=== PATIENT | female | born 2000 | race Caucasian/White ===

== ENCOUNTER → 2018-01-01 13:12 | Outpatient (CLI) | payer BC, SELFPAY ==
[2018-01-01 15:50] LABS: Hematocrit 42.7 % (37-47); Hemoglobin 13.9 g/dl (12.0-15.0); Mean Corp Hgb Conc 32.6 g/gl (32-36); Mean Corpuscular Hgb 27.6 pg (27.0-32.0); Mean Corpuscular Volume 84.7 fL (81-99); Mean Platelet Vol. 11.3 fl (6.2-12.0); Platelet Count 278 K/mm3 (150-450); RBC Distribution Width CV 13.8 % (11.6-14.6); RBC Distribution Width SD 41.9 fl (35.1-43.9); Red Blood Count 5.04 M/mm3 (4.2-5.4); White Blood Count 8.9 K/mm3 (4.4-11.0)
[2018-01-01 15:52] LABS: Scan Indicated on CBC? Y/N NO
[2018-01-01 16:18] LABS: hCG Titer Quant., Serum < 1 mIU/mL (<9 non-preg)
[2018-01-01 17:05] LABS: Estradiol 43.4 pg/mL; Free T3 3.1 pg/mL (2.18-3.98); T4 Free Direct 1.06 ng/dL (0.76-1.46); Thyroid Stim Hormone (TSH) 1.65 uIU/mL (0.358-3.74)
[2018-01-02 08:43] LABS: Progesterone Level 0.57 ng/mL (See Comment)
== END ==
PROVIDERS: Visit Provider Obstetrics & Gynecology
DX: R10.2 Pelvic and perineal pain (principal)
CPT/HCPCS: 36415; 82670; 83036; 84144; 84403; 84439; 84443; 84481; 84702; 85027

== ENCOUNTER 2018-02-22 06:10 | Day surgery (SDC) | payer BC, SELFPAY ==
--- NOTE | 2018-02-15 11:49 | EKG12_ITS ---
Test Reason : PREOP Blood Pressure : / mmHG Vent. Rate : 060 BPM Atrial Rate : 060 BPM P-R Int : 150 ms QRS Dur : 108 ms QT Int : 402 ms P-R-T Axes : 000 175 165 degrees QTc Int : 402 ms Suspect arm lead reversal, interpretation assumes no reversal Normal sinus rhythm with sinus arrhythmia Right axis deviation ST & T wave abnormality, consider inferior ischemia Abnormal ECG Lead reversal-noted Reconfirmed by [place] SEWELL, ANDRES ([id number]), multimedia editor BRANNON WHITE ([id number]) on 02/18/2018 2:02:24 PM Referred By: Phyllis Reardon Confirmed By:ANDRES HO MD
[2018-02-15 12:04] LABS: Prothrombin Time (Protime)PT. 13.5 SECONDS (11.7-14.9)
[2018-02-15 12:05] LABS: Hematocrit 42.6 % (37-47); Hemoglobin 13.4 g/dl (12.0-15.0); Mean Corp Hgb Conc 31.5 g/gl (32-36); Mean Corpuscular Hgb 26.9 pg (27.0-32.0); Mean Corpuscular Volume 85.5 fL (81-99); Mean Platelet Vol. 10.7 fl (6.2-12.0); Partial Thromboplast Time 29.7 Seconds (24.1-36.2); Platelet Count 247 K/mm3 (150-450); RBC Distribution Width CV 13.6 % (11.6-14.6); RBC Distribution Width SD 42.6 fl (35.1-43.9); Red Blood Count 4.98 M/mm3 (4.2-5.4); White Blood Count 7.8 K/mm3 (4.4-11.0)
[2018-02-15 12:34] LABS: Scan Indicated on CBC? Y/N NO
[2018-02-22 06:40] VITALS: BP 132/78; PULSE 76; RESP 16; TEMP 36.5; O2SAT 98; BMI 43.9
[2018-02-22 06:47] LABS: Internal QC Validated? YES +Cl - CLEAR BKGD; Pregnancy, Urine Negative Negative
[2018-02-22 07:04] LABS: Anion Gap 7 (5-15); BUN 7 mg/dL (7-18); BUN/Creat Ratio 7.7 RATIO (10-20); Calcium,Total 8.4 mg/dL (8.5-10.1); Chloride 107 mmol/L (98-107); Creatinine, Serum 0.91 mg/dL (0.55-1.02); EST Glomerular Filtration Rate 84 mL/min (>60); Est Glom Filt Rate - Afr Amer 102 mL/min (>60); Estimated Creatinine Clearance 85.87 ml/min; Glucose 86 mg/dL (74-106); Potassium 3.6 mmol/L (3.5-5.1); Sodium Level 142 mmol/L (136-145)
[2018-02-22] MEDS: Ondansetron 4 MG/2 ML Vial (07:25)
--- NOTE | 2018-02-22 08:13 | OP.PCM_ITS ---
Problem List (1) Pelvic pain Status: Acute (2) Irregular menses Status: Acute Report of Operation Date of Procedure: 02/22/18 Pre-Operative Diagnosis: Pelvic pain and irregular menses Post-Operative Diagnosis: Same Surgery/Procedure Performed:: IUD removal and diagnostic laparoscopy Description of Surgical Findings:: Uterus was noted to be normal in all gravid size well supported and fully mobile. Ovaries were noted to be normal on pelvic examination under anesthesia. Upon entering the abdominal cavity it was noted that the uterus was within normal limits fully mobile fallopian tubes were normal out to their fimbrial ends. Bilateral ovaries were slightly enlarged with the suspicion of possibly a mild polycystic ovarian disease but individual small follicles not noted on the ovaries otherwise within normal limits. aviation support equipment repairer: Elsy Tiwari Type of Anesthesia:: General Anesthesiologist: Carl Gonzales Special Medications: Cefotetan 2 g IV preop Specimen's removed: IUD removed from the uterine cavity Drains: None Estimated Blood Loss (mL): Minimal Fluids Replaced: Lactated Ringer Description of Procedure: Patient underwent a bowel prep in the home setting. She presented n.p.o. since midnight the night before surgery. Patient was taken to the surgical suite where she underwent a general anesthetic after placement of monitors. Patient was placed in dorsal lithotomy position via the Jono stirrups. She had removal of all urine from the bladder via the straight cath. After placement of all drapes patient had with respect into the vagina anterior lip of the cervix was grasped and elevated. The IUD was grasped with the ring forceps and removed without incident. The uterine manipulator placed into the cervical eyes area for uterine manipulation. Weighted speculum removed from vagina. Patient was straight and changing gloves 5 mm incision was made at the umbilicus. The Veress needle was placed into this area with water test verifying abdominal placement. CO2 gas infused into the abdominal cavity without incident. Veress needle was removed followed by placement of a disposable 5 mm trocar in the umbilical area. Lab scope assembled and placed into the abdominal cavity. Bowel was profusely around all genitalia even with steep Trendelenburg inciting. At this point in time a second 5 mm incision was made in the left lower quadrant under direct visualization and a 5 mm disposable trocar placed into this area. The probe was placed through this left sided trocar and manipulation of the pelvis to investigate the pelvis entirely occurred the anterior cul-de-sac was noted to be normal. The posterior cul-de-sac was noted to be normal. Bilateral adnexal regions out to the fimbrial ends of the fallopian tubes noted to be normal. Bilateral ovaries appear to be slightly enlarged but consistent bilaterally with no obvious cystic structures noted but would give rise to a possible mild polycystic ovarian disease. The right and left colic areas were noted to be within normal limits. Ureters bilaterally were noted to be within normal limits and peristalsing. The right upper quadrant was investigated up to the liver and noted to be normal the. The left upper quadrant investigated up to the splenic area noted to be normal. At this point in time discontinuation of the surgery occurred with removal of the left lower quadrant trocar under direct visualization hemostasis noted. The CO2 gas was released from the abdominal cavity and the umbilical incision was noted to be hemostatic as well. Patient was flattened. The incisions were closed with 4-0 Monocryl in a mattress suture on the left lower quadrant region which will be removed in the office. The umbilical incision was then closed with 4-0 Monocryl in a subcuticular fashion. The patient was awakened in stable condition to be taken to recovery room to be discharged home. The sponge instrument and needle counts were correct ?2. Grafts/Implants Used: None - Complications None - Admit VTE Documentation VTE Present on Admission: No VTE Mechan Device Prophylaxis: SCD's VTE Pharm Prophylaxis ordered?: No Reason prophylaxis not ordered:: Procedure Not Indicated
[2018-02-22 08:17] VITALS: BP 116/72; BP 132/78; PULSE 126; RESP 18; TEMP 36.2; O2SAT 92
--- NOTE | 2018-02-22 08:18 | PCM.DC.D&C ---
Discharge Diet: - - Low residue diet x 48 hours and increase water intake to 120 ounces daily x 4 days Discharge Activity: Return to Normal Activity, May Shower, May Take a Tub Bath - in 2 weeks. May shower in (days): 0 - TODAY May resume sexual activity in: 2 weeks Weight Bearing Status: Full weight bearing Lifting Restrictions: none Additional Activity Instructions:: Ambulate often Call your doctor if your incision/area has: Sudden Increased Bleeding Call your doctor if you observe: Fever of 101 or Higher, Inability to urinate, Inability to have a bowel movement, Using more than one pad per hour Remove Dressing in (days):: 1 - remove bandages in 24 hours Cleanse incision/area with: Soap & Water Allergies/Adverse Reactions: Allergies No Known Allergies Allergy (Verified 02/15/18 09:33) Medications to take at Discharge Levonorgestrel [Mirena] 1 each IY DAILY 12/11/16 Fluticasone 110 Mcg [Flovent (SP)] 2 puff INHALATION BID 12/18/16 Albuterol Inhaler [Ventolin Hfa (SP)] 1 - 2 puff INHALATION Q4H PRN PRN 02/15/18 Oxycodone HCl/Acetaminophen [Percocet 5/325] 1 - 2 tablet PO Q4H PRN PRN 7 Days #20 tablet 02/22/18 The following prescriptions were given: Oxycodone HCl/Acetaminophen [Percocet 5/325] 1 - 2 tablet PO Q4H PRN PRN 7 Days #20 tablet PRN Reason: Pain Primary Care Physician: Carol Henderson MD [Primary Care Provider] - Test Results: Test results from this visit will be discussed in further detail at your follow-up appointment, if applicable. Please Follow Up With: Phyllis Reardon MD When: postop appointment March 01 - call to schedule
[2018-02-22 08:30] VITALS: BP 110/50; BP 132/78; PULSE 84; RESP 18; O2SAT 99
[2018-02-22 08:45] VITALS: BP 120/74; BP 132/78; PULSE 62; RESP 18; O2SAT 94
[2018-02-22 09:00] VITALS: BP 124/75; BP 132/78; PULSE 73; RESP 18; TEMP 35.8; O2SAT 95
[2018-02-22] MEDS: Ibuprofen 400 MG Tablet 800 MG PO (10:17)
[2018-02-22 10:30] VITALS: BP 112/70; BP 132/78; PULSE 77; RESP 16; TEMP 36.2; O2SAT 95
== END 2018-02-22 10:45 | disposition home or self-care (01) ==
LOC: SDC 06:10 → AC 06:11
PROVIDERS: Family Provider Family Medicine; PCP Family Medicine; Visit Provider Obstetrics & Gynecology
PROC: (CPT 49320; principal; 2018-02-22 07:15)
DX: N92.6 Irregular menstruation, unspecified (principal); R10.2 Pelvic and perineal pain; J45.909 Unspecified asthma, uncomplicated; M79.7 Fibromyalgia
CPT/HCPCS: 00840; 49320; 58301; 36415; 80048; 81025; 85027; 85610; 85730; 86850; 86900; 93005; J7120; J2405